=== PATIENT | female | born 1990 | race Caucasian/White ===

== ENCOUNTER 2016-11-09 13:12 | Emergency (ER) | payer SELFPAY ==
[~2016-11-09] VITALS: Ht 160 cm; Wt 76.2 kg
[~2016-11-09 13:12] MED LIST: BENTYL10 MG PO; FLEXERIL10 MG PO; NAPROSYN500 MG PO; ULTRAM50 MG PO; ZANTAC150 MG PO; ZOFRAN4 MG PO
[2016-11-09 14:11] LABS: HEMATOCRIT 41.9 % (36.0-46.0); MCH 29.5 PG (29.0-34.0); MCHC 33.9 G/DL (30.0-36.0); MCV 87.1 FL (83-99); MEAN PLAT.VOLUME 12.1 uM^3 (9.5-12.4); PLATELET COUNT 254 K/uL (156-360); RBC DIS.WIDTH-CV 11.9 % (11.8-14.6); RBC DIS.WIDTH-SD 38.2 % (39-53); RED BLOOD COUNT 4.81 M/uL (3.80-5.20); WHITE BLOOD COUNT 11.5 K/uL (4.1-10.2)
[2016-11-09 14:21] LABS: CHLORIDE 106 mEq/L (99-109); POTASSIUM 4.2 mEq/L (3.7-5.4); SODIUM 137 mEq/L (136-147)
[2016-11-09 14:23] LABS: GLUCOSE 82 mg/dL (70-99)
[2016-11-09 14:24] LABS: ANION GAP 8 MEQ/L (2-14)
[2016-11-09 14:24] LABS: ADD MIUA? YES; BILIRUBIN NEGATIVE; BLOOD NEGATIVE; COLOR YELLOW ((YELLOW)); GLUCOSE (STRIP) NEGATIVE; KETONES 80; LEUKOCYTES NEGATIVE; NITRITE NEGATIVE; PROTEIN (STRIP) NEGATIVE; SPECIFIC GRAVITY 1.024 (1.000-1.030); UROBILINOGEN 0.2 MG/DL (0.2-1.0)
[2016-11-09 14:25] LABS: TOTAL BILIRUBIN 0.4 mg/dL (0.0-1.0)
[2016-11-09 14:26] LABS: ALKALINE PHOSPHATASE 49 IU/L (3-129)
[2016-11-09 14:27] LABS: GFR ESTIMATE (CALCULATED) > 59 mL/min/
[2016-11-09 14:28] LABS: UREA NITROGEN (BUN) 6 mg/dL (9-23)
[2016-11-09 14:30] LABS: BACTERIA RARE /HPF; CALCIUM OXALATE CRYSTALS 2+ /HPF; EPITHELIAL CELLS RARE /HPF; MUCUS 4+ /LPF; RED BLOOD CELLS 0-5 /HPF (0-5); UCUL ADDED? NO; WHITE BLOOD CELLS 0-5 /HPF (0-5)
[2016-11-09 14:59] LABS: QUANTITATIVE HCG 127928.5 MIU/ML
[2016-11-09] MEDS ORDERED: ZOFRAN ODT4 MG PO (15:47)
[2016-11-09] MEDS ORDERED: VITAMIN B-625 MG PO (15:47)
[2016-11-09] MEDS ORDERED: UNISOM25 MG PO (15:47)
[2016-11-09 16:16] VITALS: BP 111/81
== END 2016-11-09 16:18 | disposition home or self-care (01) ==
LOC: EME 13:12 → EXP 13:12
DX: O21.0 Mild hyperemesis gravidarum (principal); F12.10 Cannabis abuse, uncomplicated
CPT/HCPCS: 80053; 81003; 84702; 85027; 99281; 99284; J7030

== ENCOUNTER 2017-01-30 11:52 | Emergency (ER) | payer OTHER ==
[~2017-01-30] VITALS: Ht 160 cm; Wt 78.0 kg
[~2017-01-30 11:52] MED LIST changes: +UNISOM25 MG PO; +VITAMIN B-625 MG PO; +ZOFRAN ODT4 MG PO
[2017-01-30 11:55] VITALS: BP 127/76
== END 2017-01-30 14:00 | disposition left against medical advice (07) ==
LOC: EME 11:52
DX: O26.892 Other specified pregnancy related conditions, second trimester (principal); O99.89 Other specified diseases and conditions complicating pregnancy, childbirth and the puerperium; H11.31 Conjunctival hemorrhage, right eye; O21.9 Vomiting of pregnancy, unspecified
CPT/HCPCS: 99281; 99283

== ENCOUNTER 2017-05-27 21:17 | Outpatient (CLI) | payer OTHER ==
[2017-05-27 21:29] VITALS: BP 126/68
[2017-05-27] MEDS ORDERED: FLINTSTONES WIT18 MG PO (21:43)
== END 2017-05-27 23:30 | disposition home or self-care (01) ==
LOC: LDRP-OP 21:17 → 2WEST 21:19 → LDRP-OP 08-28 13:02
DX: O26.893 Other specified pregnancy related conditions, third trimester (principal)
CPT/HCPCS: 59025; G0378

== ENCOUNTER 2017-06-10 17:04 | Outpatient (CLI) | payer OTHER ==
[~2017-06-10 17:04] MED LIST changes: +FLINTSTONES WIT18 MG PO
[2017-06-10 17:17] VITALS: BP 113/73
== END 2017-06-10 19:00 | disposition home or self-care (01) ==
LOC: LDRP-OP → 2WEST 17:06 → LDRP-OP 07-28 00:01
DX: O36.8330 Maternal care for abnormalities of the fetal heart rate or rhythm, third trimester, not applicable or unspecified (principal); Z22.330 Carrier of Group B streptococcus; Z3A.39 39 weeks gestation of pregnancy
CPT/HCPCS: 59025; G0378

== ENCOUNTER 2017-06-29 07:44 | Inpatient (IN) | payer OTHER ==
[2017-06-29] VITALS (24 sets, daily range): BP systolic 101–140; BP diastolic 57–101
[~2017-06-29] VITALS: Ht 160 cm; Wt 81.4 kg
[2017-06-29 09:19] LABS: BASOPHIL (%) 0.3 % (0-1); EOSINOPHIL (%) 1.6 % (0-5); EOSINOPHIL COUNT 0.1 K/uL (0-0.3); HEMATOCRIT 32.7 % (36.0-46.0); HEMOGLOBIN 10.6 G/DL (11.9-15.5); IMMATURE GRANULOCYTE (%) 1.1 % (0.0-0.7); LYMPHOCYTE (%) 21.6 % (15-42); LYMPHOCYTE COUNT 1.7 K/uL (1.0-2.8); MCHC 32.4 G/DL (30.0-36.0); MCV 86.3 FL (83-99); MONOCYTE (%) 6.2 % (3-12); MONOCYTE COUNT 0.5 K/uL (0-0.8); NEUTROPHIL (%) 69.2 % (45-76); NEUTROPHIL COUNT 5.5 K/uL (1.8-6.4); PLATELET COUNT 242 K/uL (156-360); RBC DIS.WIDTH-CV 12.1 % (11.8-14.6); RBC DIS.WIDTH-SD 38.5 % (39-53); RED BLOOD COUNT 3.79 M/uL (3.80-5.20); WHITE BLOOD COUNT 7.9 K/uL (4.1-10.2)
[2017-06-29 15:16] LABS: AMPHETAMINE NEGATIVE (500 ng/mL); BARBITURATES NEGATIVE (200 ng/mL); BENZODIAZEPINES NEGATIVE (150 ng/mL); BUPRENORPHINE NEGATIVE (10 ng/mL); COCAINE NEGATIVE (150 ng/mL); METHADONE NEGATIVE (200 ng/mL); METHAMPHETAMINE NEGATIVE (500 ng/mL); OPIATES (MORPHINE) NEGATIVE (100 ng/mL); OXYCODONE NEGATIVE (100 ng/mL); PHENCYCLIDINE NEGATIVE (25 ng/mL); PROPOXYPHENE NEGATIVE (300 ng/mL); THC CANNABINOIDS NEGATIVE (50 ng/mL); TRICYCLIC ANTIDEPRESSANTS NEGATIVE (300 ng/mL)
[2017-06-29] MEDS ORDERED: IBUPROFEN800 MG PO (20:21)
[2017-06-30 06:50] VITALS: BP 108/61
[2017-06-30 14:15] VITALS: BP 121/70
[2017-06-30 22:59] VITALS: BP 113/63
[2017-07-01 07:28] VITALS: BP 122/72
[2017-07-01 14:40] VITALS: BP 126/69
== END 2017-07-01 17:50 | disposition home or self-care (01) | DRG 775 ==
LOC: LDRP-OP 07:44 → 2WEST 07:45 → LDRP-OP 23:51 → 2WEST 07-01 17:50 → LDRP-OP 07-28 21:08
PROVIDERS: Midwife
PROC: 10E0XZZ Delivery of Products of Conception, External Approach (ICD-10-PCS; principal; 2017-06-29)
PROC: 00HU33Z Insertion of Infusion Device into Spinal Canal, Percutaneous Approach (ICD-10-PCS; principal; 2017-06-29)
PROC: 3E033VJ Introduction of Other Hormone into Peripheral Vein, Percutaneous Approach (ICD-10-PCS; principal; 2017-06-29)
PROC: 0HQ9XZZ Repair Perineum Skin, External Approach (ICD-10-PCS; principal; 2017-06-29)
PROC: 10907ZC Drainage of Amniotic Fluid, Therapeutic from Products of Conception, Via Natural or Artificial Opening (ICD-10-PCS; principal; 2017-06-29)
PROC: 3E0R3BZ Introduction of Anesthetic Agent into Spinal Canal, Percutaneous Approach (ICD-10-PCS; principal; 2017-06-29)
DX: O48.0 Post-term pregnancy (principal); O41.03X0 Oligohydramnios, third trimester, not applicable or unspecified; O70.0 First degree perineal laceration during delivery; O99.824 Streptococcus B carrier state complicating childbirth; O99.324 Drug use complicating childbirth; F12.90 Cannabis use, unspecified, uncomplicated; Z3A.41 41 weeks gestation of pregnancy; Z37.0 Single live birth
CPT/HCPCS: 85025; C1755; J2540; J2590; J3010; J7120